=== PATIENT | male | born 1970 | race Caucasian/White ===

== ENCOUNTER 2023-10-20 19:05 | Emergency (ER) | payer BC ==
[~2023-10-20] VITALS: Ht 188 cm; Wt 84.1 kg
[2023-10-20 19:25] VITALS: BP 80/50
[2023-10-20 20:36] VITALS: PULSE 75; TEMP 96.7
== END 2023-10-20 20:38 | disposition home or self-care (01) ==
LOC: COL.ER 19:05
DX: T83.098A Other mechanical complication of other urinary catheter, initial encounter (principal)

== ENCOUNTER 2023-10-30 08:18 | Emergency (ER) | payer BC ==
[~2023-10-30] VITALS: Ht 188 cm; Wt 90.9 kg
[2023-10-30 08:24] VITALS: TEMP 98.4
[2023-10-30 11:08] LABS: URINE APPEARANCE TURBID (CLEAR/HAZY); URINE BLOOD 3+ (NEGATIVE); URINE COLOR Dark Yellow (YELLOW); URINE GLUCOSE NEGATIVE (NEGATIVE); URINE KETONE NEGATIVE (NEGATIVE); URINE NITRATE POSITIVE (NEGATIVE); URINE PROTEIN(semi-quant) 3+ (NEGATIVE)
[2023-10-30 11:54] LABS: URINE RBC >50 /hpf (0-2); URINE WBC >50 /hpf (0-2)
[2023-10-30 11:55] LABS: URINE BACTERIA MODERATE /hpf (NONE SEEN)
[2023-10-30 12:07] VITALS: BP 115/73; PULSE 67
[2023-10-30 12:50] LABS: COLLECTION METHOD CLEAN CATCH
== END 2023-10-30 12:07 | disposition home or self-care (01) ==
LOC: COL.ER 08:18
PROVIDERS: Family Medicine
DX: T83.29XA Other mechanical complication of graft of urinary organ, initial encounter (principal)

== ENCOUNTER 2023-11-16 15:49 | Emergency (ER) | payer BC ==
[~2023-11-16] VITALS: Ht 188 cm; Wt 90.9 kg
[2023-11-16 16:01] VITALS: TEMP 98.5
[2023-11-16 17:39] LABS: COLLECTION METHOD CATHETER
[2023-11-16 18:09] LABS: URINE APPEARANCE CLEAR (CLEAR/HAZY); URINE BLOOD 2+ (NEGATIVE); URINE COLOR YELLOW (YELLOW); URINE GLUCOSE NEGATIVE (NEGATIVE); URINE KETONE NEGATIVE (NEGATIVE); URINE NITRATE NEGATIVE (NEGATIVE); URINE PROTEIN(semi-quant) NEGATIVE (NEGATIVE)
[2023-11-16] MEDS ORDERED: CIPRO 500MG TA500 MG PO (18:26)
[2023-11-16] MEDS ORDERED: Ciprofloxacin 500 MG TAB PO ONE (18:30)
[2023-11-16 18:43] VITALS: BP 92/57; PULSE 72
== END 2023-11-16 18:43 | disposition home or self-care (01) ==
LOC: COL.ER 15:49
PROVIDERS: Nurse Practitioner
DX: T83.9XXA Unspecified complication of genitourinary prosthetic device, implant and graft, initial encounter (principal); N39.0 Urinary tract infection, site not specified; Y84.6 Urinary catheterization as the cause of abnormal reaction of the patient, or of later complication, without mention of misadventure at the time of the procedure